=== PATIENT | female | born 1965 | race Caucasian/White ===

== ENCOUNTER 2022-10-26 00:21 | Emergency (ER) | payer MEDICAID, OTHER ==
[~2022-10-26] VITALS: Ht 162.6 cm; Wt 72.1 kg
[2022-10-26] MEDS ORDERED: ACETAMINOPHEN 325 MG TABLET PO ONE (01:45)
[2022-10-26] MEDS ORDERED: LIDOCAINE HCL 1% 20 ML VIAL IJ ONE (01:45)
[2022-10-26] MEDS ORDERED: CEFTRIAXONE 1 G VIAL IM ONE (01:45)
[2022-10-26] MEDS ORDERED: CEFTRIAXONE 1 G VIAL ONE (02:11)
[2022-10-26] MEDS ORDERED: ACETAMINOPHEN 325 MG TABLET ONE (02:11)
[2022-10-26] MEDS ORDERED: LIDOCAINE HCL 1% 20 ML VIAL ONE (02:12)
[2022-10-26] MEDS ORDERED: IV NORMAL SALINE 1000 ML BAG IV ONE (02:45)
[2022-10-26] MEDS ORDERED: CEPH500C2 PO (02:52)
[2022-10-26] MEDS ORDERED: SULF1TAB48 PO (02:52)
[2022-10-26 03:24] VITALS: BP 106/65
== END 2022-10-26 02:30 | disposition home or self-care (01) ==
LOC: ER 00:21
DX: L03.116 Cellulitis of left lower limb (principal); L03.115 Cellulitis of right lower limb; M79.89 Other specified soft tissue disorders; I10 Essential (primary) hypertension; E78.5 Hyperlipidemia, unspecified; F17.210 Nicotine dependence, cigarettes, uncomplicated
CPT/HCPCS: 99284; 93971; 96372; J0696; J3490; A4663; J7040